=== PATIENT | male | born 1980 ===

== ENCOUNTER 2021-04-29 09:07 | Inpatient (IN) ==
[2021-04-29] MEDS ORDERED: Heparin - STEMI 5,000 UNITS/ML 1 ml VIAL IV ONE (09:09)
[2021-04-29] MEDS ORDERED: VERAPAMIL 2.5 MG/ML 2 ML VIAL ** 5 mg/2 ml ONE (09:12)
[2021-04-29] MEDS ORDERED: Heparin 1,000 UNIT/ML 10 ml (10,000 UNITS) CATHLAB/DIALYSIS ONE (09:12)
[2021-04-29] MEDS ORDERED: Heparin 2 UNITS/ML 1000 mls 2,000 ML IV ONE (09:12)
[2021-04-29] MEDS ORDERED: nitroGLYCERIN DRIP 25,000 MCG/250 ML BTL ONE (09:13)
[2021-04-29] MEDS ORDERED: Lidocaine 1% VIAL 10 MG/ML VIAL ONE (09:13)
[2021-04-29] MEDS ORDERED: Iohexol 350 (CONTRAST) 200 ML MDV IV ONE (09:13)
[2021-04-29] MEDS ORDERED: Midazolam 5 mg/5 ml VIAL 1 mg/ml 5 ml VIAL (5 mg) ONE (09:21)
[2021-04-29] MEDS ORDERED: fentaNYL 100 mcg/2 ml 50 MCG/ML VIAL ONE (09:21)
[2021-04-29 09:24] LABS: Hematocrit 47 % (42-52); Hemoglobin 15.1 g/dL (14.0-18.0); Mean Platelet Volume 7.7 fL (7.4-10.4); Platelet Count 380 10^3/uL (150-450); Red Blood Count 6.48 10^6 /uL (4.18-5.48); Red Cell Distribution Width 15 % (10-15)
[2021-04-29 09:31] LABS: Activated Partial Thrombo Time 26.5 seconds (26.0-38.0)
[2021-04-29] MEDS ORDERED: Bivalirudin 250 MG VIAL ONE (09:39)
[2021-04-29 09:41] LABS: ALT 59 U/L (7-52); AST 66 U/L (13-39); Albumin 3.8 g/dL (3.2-5.2); Albumin/Globulin Ratio 1.2 (1-3); Alkaline Phosphatase 99 U/L (35-149); Anion Gap 12 mmol/L (2-11); Blood Urea Nitrogen 21 mg/dL (6-24); CO2 Carbon Dioxide 17 mmol/L (22-32); Calcium 8.5 mg/dL (8.6-10.3); Chloride 109 mmol/L (101-111); Globulin 3.2 g/dL (2-4); Glucose 190 mg/dL (70-100); Potassium 3.7 mmol/L (3.5-5.0); Sodium 138 mmol/L (135-145)
[2021-04-29 09:51] LABS: Troponin I 0.09 ng/mL (<0.03)
[2021-04-29 10:14] LABS: ABS Basophils 0.1 10^3/ul (0-0.2); ABS Eosinophils 1.2 10^3/ul (0-0.6); ABS Lymphocytes 3.5 10^3/ul (1.0-4.8); ABS Monocytes 1.4 10^3/ul (0-0.8); ABS Neutrophils 14.9 10^3/ul (1.5-7.7); Eosinophil % 5.7 %; Lymphocyte % 16.5 %; Magnesium 1.7 mg/dL (1.9-2.7); Mean Corpuscular HGB Conc 32 g/dL (31-36); Mean Corpuscular Hemoglobin 23 pg (27-31); Mean Corpuscular Volume 72 fL (80-94); Nucleated Red Blood Cells % 0.1
[2021-04-29] MEDS ORDERED: Furosemide 20 mg/2 ml IV VIAL IV ONE (10:38)
[2021-04-29] MEDS ORDERED: Furosemide 20 mg/2 ml IV VIAL ONE (10:39)
[2021-04-29] MEDS ORDERED: Magnesium Sulfate 2 gm BAG 2 GM/50 ML BAG IVPB ONE (11:25)
[2021-04-29 12:47] LABS: Troponin I 2.25 ng/mL (<0.03)
[2021-04-29] MEDS ORDERED: Ondansetron 4 mg VIAL 2 MG/ML 2 ml VIAL ONE (13:06)
[2021-04-29] MEDS ORDERED: Ondansetron 4 mg VIAL 2 MG/ML 2 ml VIAL IV ONE (13:06)
[2021-04-29 13:07] LABS: Rapid COVID-19 Molecular Undetected (Undetected)
[2021-04-29 18:03] LABS: Troponin I 9.94 ng/mL (<0.03)
[2021-04-29] MEDS ORDERED: Lidocaine PATCH 5% PATCH TRANSDERM ONE (20:49)
[2021-04-30 00:40] LABS: Troponin I 16.95 ng/mL (<0.03)
[2021-04-30 05:55] LABS: ABS Basophils 0.1 10^3/ul (0-0.2); ABS Eosinophils 0.6 10^3/ul (0-0.6); ABS Lymphocytes 2.4 10^3/ul (1.0-4.8); ABS Monocytes 1.4 10^3/ul (0-0.8); ABS Neutrophils 10.9 10^3/ul (1.5-7.7); Eosinophil % 3.9 %; Hematocrit 43 % (42-52); Hemoglobin 14.2 g/dL (14.0-18.0); Lymphocyte % 15.7 %; Mean Corpuscular HGB Conc 33 g/dL (31-36); Mean Corpuscular Hemoglobin 24 pg (27-31); Mean Corpuscular Volume 71 fL (80-94); Mean Platelet Volume 7.7 fL (7.4-10.4); Platelet Count 330 10^3/uL (150-450); Red Blood Count 6.03 10^6 /uL (4.18-5.48); Red Cell Distribution Width 15 % (10-15); White Blood Count 15.4 10^3/uL (3.5-10.8)
[2021-04-30 06:29] LABS: Anion Gap 6 mmol/L (2-11); Blood Urea Nitrogen 15 mg/dL (6-24); CO2 Carbon Dioxide 22 mmol/L (22-32); Calcium 8.4 mg/dL (8.6-10.3); Chloride 108 mmol/L (101-111); Cholesterol 191 mg/dL; Glucose 117 mg/dL (70-100); HDL Cholesterol 29.2 mg/dL; LDL Cholesterol 123 mg/dL; Potassium 3.9 mmol/L (3.5-5.0); Sodium 136 mmol/L (135-145); Triglycerides 194 mg/dL
[2021-04-30] MEDS ORDERED: Perflutren Lipid Microsphere 3 ML VIAL ONE (08:32)
[2021-04-30 08:43] LABS: Troponin I 10.43 ng/mL (<0.03)
[2021-04-30] MEDS ORDERED: Lidocaine Patch REMOVE PATCH PATCH OFF ONE (09:00)
[2021-04-30] MEDS: oxyCODONE/Acetamin 5/325 mg TAB PO PRN ×3 (10:13→22:16)
[2021-05-01 05:38] LABS: Calcium 8.6 mg/dL (8.6-10.3); Magnesium 1.9 mg/dL (1.9-2.7); Potassium 3.9 mmol/L (3.5-5.0)
[2021-05-01] MEDS: oxyCODONE/Acetamin 5/325 mg TAB PO PRN (08:11)
[2021-05-01 12:58] VITALS: BP 96/68
== END 2021-05-01 13:30 | DRG 174 ==
LOC: ED 09:07 → CHICATH 09:18 → ICU 10:18
PROVIDERS: ATTEND Internal Medicine